=== PATIENT | male | born 1935 | race Caucasian/White ===

== ENCOUNTER → 2017-02-20 | Outpatient (CLI) | payer MEDICARE, OTHER ==
[~2017-02-20] MED LIST: AMIODARONE HCL100 MG PO; AMIODARONE PO; ASPIRIN PO; ASPIRIN81 M2 PO; ASPIRIN81 MG PO; AUGMENTIN875 MG PO; AVODART0.5 MG PO; CORDARONE200 M1 PO; COUMADIN PO; COUMADIN5 MG PO; JANTOVEN7.5 MG PO; LEVAQUIN PO; LINZESS290 MCG PO; LIPITOR PO; LIPITOR20 MG PO; LOVENOX SUBQ; METOPROLOL SUCC25 MG PO; METOPROLOL TART25 MG PO; METRONIDAZOLE PO; MIRALAX17 GM PO; PANTOPRAZOLE SO40 MG PO; PROTONIX20 MG PO; PROTONIX20 MG PO/SL; SENNA LAXATIVE8.6 M1 PO; SENNA-S TABLE1 UDTAB PO; SENOKOT S1 TAB PO
[2017-02-20 11:49] LABS: HEMATOCRIT 39.6 % (38.0-50.0); HEMOGLOBIN 13.1 gm/dL (13.0-16.0); MEAN CELL VOLUME 98.9 FL (83-96); MEAN CORPUSCULAR HEMOGLOBIN 32.6 PG (28-34); MEAN PLATELET VOLUME 9.3 FL (6.5-11.5); RED BLOOD COUNT 4.01 X10e (3.90-5.60); RED CELL DISTRIBUTION WIDTH 13.5 % (11.0-15.5); WHITE BLOOD COUNT 7.4 X10e3 (4.0-10.5)
[2017-02-20 12:00] LABS: URINE APPEARANCE CLEAR; URINE BILIRUBIN NEG (NEG); URINE BLOOD NEG (NEG); URINE COLOR YELLOW; URINE GLUCOSE NEG (NEG); URINE KETONE NEG (NEG); URINE LEUKOCYTE ESTERASE NEG (NEG); URINE NITRATE NEG (NEG); URINE PH 5.5 (5-8); URINE PROTEIN NEG (NEG); URINE SPECIFIC GRAVITY 1.014 (1.003-1.035); URINE UROBILINOGEN 0.2 MG/DL (NEG)
[2017-02-20 12:04] LABS: URINE SOURCE CLEAN CATCH
[2017-02-20 12:54] LABS: BUN/CREATININE RATIO 18.23; CALCIUM SERUM 9.9 mg/dL (8.4-10.2); CREATININE SERUM 1.7 mg/dL (0.6-1.4); GLOM FILT RATE Estimated 36.8 mL/min (>60); PHOSPHOROUS 2.9 mg/dL (2.5-4.6); POTASSIUM 5.2 mmol/L (3.5-5.1)
[2017-02-20 14:05] LABS: CREATININE,RANDOM URINE 76 mg/dL; TOTAL PROTEIN,RANDOM URINE 10 mg/dl (<10)
[2017-03-02 05:51] LABS: CALCIUM (PTHINTACT) 10.2 mg/dL (8.6-10.3)
== END | disposition home or self-care (01) ==
LOC: CLAB 11:09
PROVIDERS: Internal Medicine Nephrology
DX: I12.9 Hypertensive chronic kidney disease with stage 1 through stage 4 chronic kidney disease, or unspecified chronic kidney disease (principal); N18.3 Chronic kidney disease, stage 3 (moderate); N25.81 Secondary hyperparathyroidism of renal origin; E55.9 Vitamin D deficiency, unspecified
CPT/HCPCS: 36415; 80048; 81003; 82306; 82310; 82570; 82728; 83540; 83550; 83970; 84100; 84156; 85027

== ENCOUNTER → 2017-05-25 | Outpatient (CLI) | payer MEDICARE, OTHER ==
[2017-05-25 14:43] LABS: HEMATOCRIT 37.8 % (38.0-50.0); HEMOGLOBIN 12.4 gm/dL (13.0-16.0); MEAN CELL VOLUME 98.1 FL (83-96); MEAN CORPUSCULAR HEMOGLOBIN 32.3 PG (28-34); MEAN CORPUSCULAR HGB CONC 32.9 g/dL (30-36); MEAN PLATELET VOLUME 8.8 FL (6.5-11.5); RED BLOOD COUNT 3.85 X10e (3.90-5.60); RED CELL DISTRIBUTION WIDTH 13.3 % (11.0-15.5); WHITE BLOOD COUNT 6.5 X10e3 (4.0-10.5)
[2017-05-25 14:57] LABS: CREATININE,RANDOM URINE 75 mg/dL; TOTAL PROTEIN,RANDOM URINE <10 mg/dl (<10)
[2017-05-25 16:14] LABS: BUN/CREATININE RATIO 18.23; CALCIUM SERUM 9.4 mg/dL (8.4-10.2); CREATININE SERUM 1.7 mg/dL (0.6-1.4); GLOM FILT RATE Estimated 36.8 mL/min (>60); POTASSIUM 4.7 mmol/L (3.5-5.1)
== END | disposition home or self-care (01) ==
LOC: CLAB 14:10
PROVIDERS: Internal Medicine Nephrology
DX: I12.9 Hypertensive chronic kidney disease with stage 1 through stage 4 chronic kidney disease, or unspecified chronic kidney disease (principal); N18.3 Chronic kidney disease, stage 3 (moderate)
CPT/HCPCS: 36415; 80048; 82570; 82728; 83540; 83550; 84156; 85027